=== PATIENT | female | born 1950 | race Caucasian/White ===

== ENCOUNTER 2020-10-17 09:05 | Outpatient (CLI) | payer MEDICARE, OTHER | END 2020-10-17 09:06 | disposition home or self-care (01) | LOC: CSHCT 09:05 | PROVIDERS: ATTEND Physician Assistant Medical | DX: R10.13 Epigastric pain (principal); K59.00 Constipation, unspecified; R11.0 Nausea; Z90.710 Acquired absence of both cervix and uterus; R59.0 Localized enlarged lymph nodes; Z90.49 Acquired absence of other specified parts of digestive tract; K57.30 Diverticulosis of large intestine without perforation or abscess without bleeding | CPT/HCPCS: 74177; 82565 ==

== ENCOUNTER 2021-10-28 09:35 | Outpatient (CLI) | payer MEDICARE, OTHER | END 2021-10-28 09:36 | disposition home or self-care (01) | LOC: CSHMAMMO 09:35 | PROVIDERS: ATTEND Family Medicine | DX: Z12.31 Encounter for screening mammogram for malignant neoplasm of breast (principal) | CPT/HCPCS: 77063; 77067 ==

== ENCOUNTER 2022-07-15 13:43 | Outpatient (CLI) | payer MEDICARE, OTHER | END 2022-07-15 13:44 | disposition home or self-care (01) | LOC: CSHULT 13:43 | PROVIDERS: ATTEND Internal Medicine Cardiovascular Disease | DX: E04.1 Nontoxic single thyroid nodule (principal); E04.2 Nontoxic multinodular goiter | CPT/HCPCS: 76536 ==

== ENCOUNTER 2022-11-19 08:35 | Outpatient (CLI) | payer MEDICARE, OTHER | END 2022-11-19 08:36 | disposition home or self-care (01) | LOC: CSHRAD 08:35 | PROVIDERS: ATTEND Otolaryngology Plastic Surgery within the Head & Neck | DX: R13.10 Dysphagia, unspecified (principal) | CPT/HCPCS: 74220 ==

== ENCOUNTER 2023-03-18 11:07 | Outpatient (CLI) | payer MEDICARE, OTHER | END 2023-03-18 11:08 | disposition home or self-care (01) | LOC: CSHMAMMO 11:07 | PROVIDERS: ATTEND Family Medicine | DX: Z13.820 Encounter for screening for osteoporosis (principal); M85.89 Other specified disorders of bone density and structure, multiple sites; Z78.0 Asymptomatic menopausal state | CPT/HCPCS: 77080 ==

== ENCOUNTER 2023-07-16 14:12 | Outpatient (CLI) | payer MEDICARE, OTHER | END 2023-07-16 14:13 | disposition home or self-care (01) | LOC: CSHULT 14:12 | PROVIDERS: ATTEND Otolaryngology Plastic Surgery within the Head & Neck | DX: E04.1 Nontoxic single thyroid nodule (principal) | CPT/HCPCS: 76536 ==

== ENCOUNTER 2024-02-01 08:20 | Outpatient (CLI) | payer MEDICARE, OTHER | END 2024-02-01 08:21 | disposition home or self-care (01) | LOC: CSHULT 08:20 | PROVIDERS: ATTEND Otolaryngology Plastic Surgery within the Head & Neck | DX: E04.1 Nontoxic single thyroid nodule (principal) | CPT/HCPCS: 76536 ==

== ENCOUNTER 2024-03-14 07:05 | Day surgery (SDC) | payer MEDICARE, OTHER ==
[2024-03-13 12:04] VITALS: BMI 19.6
[2024-03-14 08:04] LABS: Hematocrit 40.6 % (34.9-44.5); Hemoglobin 13.2 g/dL (12.0-15.5)
[2024-03-14 08:14] LABS: Anion Gap 12 mmol/L (10-20); BUN (Urea Nitrogen) 12 mg/dL (9.8-20.1); Calc. Creatinine Clearance 50 mL/min (70-130); Calcium 9.3 mg/dL (7.8-10.44); Carbon Dioxide 25 mmol/L (23-31); Chloride 105 mmol/L (98-107); Estimated GFR 75; Glucose 96 mg/dL (83-110); Sodium 138 mmol/L (136-145)
[2024-03-14] MEDS ORDERED: CEFAZOLIN 2 GM VIAL ONE (09:12)
[2024-03-14] MEDS ORDERED: EPINEPHrine 1 MG/ML VIAL ONE (09:12)
[2024-03-14] MEDS ORDERED: Dexamethasone 20 MG/5 ML VIAL ONE (09:13)
[2024-03-14] MEDS ORDERED: Rocuronium Bromide 10 MG/ML (10ML VIAL) ONE (09:13)
[2024-03-14] MEDS ORDERED: Ondansetron PF 4 MG/2 ML Vial ONE (09:13)
[2024-03-14] MEDS ORDERED: Lidocaine 1% PF 5 ML VIAL ONE (09:13)
[2024-03-14] MEDS ORDERED: fentaNYL 50 mcg/mL 1 mL Vial ONE (09:14)
[2024-03-14] MEDS ORDERED: PROPOFOL 20 ML ONE (09:14)
[2024-03-14] MEDS ORDERED: Midazolam HCl 2 mg/2 ml Vial ONE (09:14)
[2024-03-14] MEDS ORDERED: Dexmedetomidine 200 MCG/2 ML VIAL ONE (09:16)
[2024-03-14] MEDS ORDERED: Clindamycin/D5W 600 mg/50 ml Premix Bag ONE (09:37)
[2024-03-14] MEDS ORDERED: PHENYLEPHRINE-NS 100 MCG/ML 10 ML SYRINGE ONE (09:47)
[2024-03-14] MEDS ORDERED: ePHEDrine Sulfate 50 MG/10 ML VIAL ONE (10:03)
[2024-03-14] MEDS ORDERED: Acetaminophen 650 MG/20.3 ML UDCUP ONE (11:43)
[2024-03-14] MEDS ORDERED: Ondansetron ODT 4 MG TAB ONE (11:44)
[2024-03-14] MEDS ORDERED: Acetaminophen 325 MG TAB PO PRN (12:09)
[2024-03-14] MEDS ORDERED: HYDROcodone/Acetaminophen 5/325 mg Tablet PO PRN ×2 (12:10)
[2024-03-14] MEDS ORDERED: Promethazine HCl 25 MG/ML VIAL IM PRN (12:15)
== END 2024-03-14 12:30 | disposition home or self-care (01) ==
LOC: CSHSDC 07:05
PROVIDERS: ATTEND Otolaryngology Otolaryngic Allergy
PROC: 0GBH0ZZ Excision of Right Thyroid Gland Lobe, Open Approach (ICD-10-PCS; principal; 2024-03-14)
DX: D34 Benign neoplasm of thyroid gland (principal); E04.2 Nontoxic multinodular goiter; K21.9 Gastro-esophageal reflux disease without esophagitis; I25.10 Atherosclerotic heart disease of native coronary artery without angina pectoris; Z79.899 Other long term (current) drug therapy; Z88.0 Allergy status to penicillin; Z88.5 Allergy status to narcotic agent
CPT/HCPCS: 60220; 80048; 85014; 85018; J0171; J1100; J2250; J2405; J2704; J3010; J3490; Q0162; 36415; 88307

== ENCOUNTER 2024-04-13 11:06 | Outpatient (CLI) | payer MEDICARE, OTHER | END 2024-04-13 11:07 | disposition home or self-care (01) | LOC: CSHMAMMO 11:06 | PROVIDERS: ATTEND Family Medicine | DX: Z12.31 Encounter for screening mammogram for malignant neoplasm of breast (principal) | CPT/HCPCS: 77063; 77067 ==

== ENCOUNTER 2025-04-09 12:08 | Outpatient (CLI) | payer MEDICARE, OTHER | END 2025-04-09 12:09 | disposition home or self-care (01) | LOC: CSHMAMMO 12:08 | PROVIDERS: ATTEND Family Medicine | DX: Z12.31 Encounter for screening mammogram for malignant neoplasm of breast (principal) | CPT/HCPCS: 77063; 77067 ==

== ENCOUNTER 2025-07-17 08:06 | Outpatient (CLI) | payer MEDICARE, OTHER ==
[2025-07-17 09:30] LABS: Estimated GFR - POC 66.0
== END 2025-07-17 08:07 | disposition home or self-care (01) ==
LOC: CSHCT 08:06
PROVIDERS: ATTEND Nurse Practitioner Family
DX: I73.9 Peripheral vascular disease, unspecified (principal)
CPT/HCPCS: 36415; 75635; 82565